=== PATIENT | female | born 1980 | race Caucasian/White ===

== ENCOUNTER 2025-01-31 17:17 | Emergency (ER) | payer OTHER, SELFPAY ==
[2025-01-31 17:21] VITALS: BP 147/87; PULSE 89; RESP 16; TEMP 36.8; O2SAT 100
--- NOTE | 2025-01-31 17:47 | ED_ITS ---
HPI - Recheck/Abnormal Lab/Rx General Chief Complaint: Recheck/Abnormal Lab/Rx <Bianka Lundberg JANETTE CurranN - Last Filed: 01/31/25 17:56> Stated Complaint: needle stick <Bianka Lundberg JANETTE CurranN - Last Filed: 01/31/25 17:56> Time Seen by Provider: 01/31/25 17:30 <Biankage Curran APRN - Last Filed: 01/31/25 17:56> Focused HPI: Patient is a 44-year-old female who presents to the ER after sustaining and needle stick to her right middle finger. She reports she is starting IV on an IV drug user. Patient reports her patient flung her arms and this patient felt the needle go through her glove. 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 Patient is requesting prophylactic treatment for everything. She reports she doused the area and put pressure on it to induce bleeding. Patient reports she is up-to-date on her vaccinations. She reports initially her right middle finger was throbbing, but the pain has subsided. Patient denies any other medical history relevant to this ER visit. GENERAL: Well-appearing, well-nourished, and in no acute distress. HEAD: Normocephalic, atraumatic. CHEST: Clear to auscultation. ?No respiratory distress. HEART: Regular rate and rhythm.? NEURO: ?Alert and oriented x3. Patient screened in triage and initial orders placed.? ?Additional care and disposition to be based upon?diagnostic testing and treatment. <Bianka TorresMarti Curran APRN - Last Filed: 01/31/25 17:56> Focused HPI: Patient is a 44-year-old female who presents to the ER after sustaining and needle stick to her right middle finger. She reports she is starting IV on an IV drug user. Patient reports her patient fl shellie her arms and this patient felt the needle go through her glove. 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 Patient is requesting prophylactic treatment for everything. She reports she doused the area and put pressure on it to induce bleeding. Patient reports she is up-to-date on her vaccinations. She reports initially her right middle finger was throbbing, but the pain has subsided. Patient denies any other medical history relevant to this ER visit. GENERAL: Well-appearing, well-nourished, and in no acute distress. HEAD: Normocephalic, atraumatic. CHEST: Clear to auscultation. ?No respiratory distress. HEART: Regular rate and rhythm.? NEURO: ?Alert and oriented x3. Patient screened in triage and initial orders placed.? ?Additional care and disposition to be based upon?diagnostic testing and treatment. <GIGI Zelaya Last Filed: 02/01/25 01:38> Source: patient <GIGI Zelaya Last Filed: 02/01/25 01:38> Mode of arrival: ambulatory <GIGI Zelaya Last Filed: 02/01/25 01:38> Limitations: no limitations <GIGI Zelaya Last Filed: 02/01/25 01:38> History of Present Illness HPI narrative: Agree with above HPI. Tetanus UTD <GIGI Zelaya Last Filed: 02/01/25 01:38> Related Data Allergies/Adverse Reactions: Allergies Allergy/AdvReac Type Severity Reaction Status Date / Time No Known Allergies Allergy Verified 01/31/25 17:23 <Bianka Curran APRN - Last Filed: 01/31/25 17:56> Review of Systems Review of Systems: All systems reviewed & are unremarkable except as noted in HPI. <GIGI Zelaya Last Filed: 02/01/25 01:38> All systems reviewed & are unremarkable except as noted in HPI and below <GIGI Zelaya Last Filed: 02/01/25 01:38> Exam Narrative: GENERAL: Well appearing, well-nourished, non-toxic, in no acute distress. HEAD: Normocephalic, atraumatic. RESPIRATORY: Airway patent, respirations nonlabored. CARDIOVASCULAR: Regular rate and rhythm MUSCULOSKELETAL: Moves all extremities. No gross deformities. SKIN: Warm, dry, normal color. No obvious puncture wounds to fingers. NEURO: A&O X3. Speech clear. PSYCHIATRIC: Appropriate mood and affect. Normal interaction. <Aliya Newsome PA-C - Last Filed: 02/01/25 01:38> Course Vital Signs Vital signs: Vital Signs Temperature 98.2 F 01/31/25 17:21 Pulse Rate 89 01/31/25 17:21 Respiratory Rate 16 01/31/25 17:21 Blood Pressure 147/87 H 01/31/25 17:21 Pulse Oximetry 100 01/31/25 17:21 Temperature 98.2 F 01/31/25 17:21 Pulse Rate 89 01/31/25 17:21 Respiratory Rate 16 01/31/25 17:21 Blood Pressure 147/87 H 01/31/25 17:21 Pulse Oximetry 100 01/31/25 17:21 <Bianka Curran APRN - Last Filed: 01/31/25 17:56> Vital Signs Temperature 98.2 F 01/31/25 17:21 Pulse Rate 89 01/31/25 17:21 Respiratory Rate 16 01/31/25 17:21 Blood Pressure 147/87 H 01/31/25 17:21 Pulse Oximetry 100 01/31/25 17:21 Temperature 98.2 F 01/31/25 17:21 Pulse Rate 89 01/31/25 17:21 Respiratory Rate 16 01/31/25 17:21 Blood Pressure 147/87 H 01/31/25 17:21 Pulse Oximetry 100 01/31/25 17:21 <Aliya Newsome PA-C - Last Filed: 02/01/25 01:38> MDM - Recheck/Abnormal Lab/Rx MDM Narrative Medical decision making narrative: Needlestick profile was obtained. Patient was able to obtain blood work from the other constitution party involved in the nee dle stick today. Advised close f/u with her hospital/nursing agency for results of this. Patient would like to receive HIV prophylaxis in case the patient's blood work does result positive. I discussed the side effects/risks related to these medications, the low transmission rate HIV from needle stick injury. Patient voiced understanding of risks. She would like to proceed with the HIV prophylaxis. She would like a prescription for this. She will follow-up with the blood work tomorrow and determine if she needs to start these medications. I did advise patient that if she chooses to begin the medications, she will need baseline labs. She does not wish to receive the blood work here today. She states she will follow-up with her PCP for this. Given return precautions. Discharged in stable condition. <Aliya Newsome PA-C - Last Filed: 02/01/25 01:38> Medical Records Attestation: I reviewed the patient's medical records. <Aliya Newsome PA-C - Last Filed: 02/01/25 01:38> Lab Data Attestation: I reviewed the patient's lab results. <Aliya Newsome PA-C - Last Filed: 02/01/25 01:38> Labs: Lab Results 01/31/25 Range/Units 17:30 Hep Bs Antibody Positive Hepatitis C Ab Screen Negative (Negative) HIV 1&2 Ab/P24 Ag 4thGn Negative (Negative) <Bianka Curran APRN - Last Filed: 01/31/25 17:56> Lab Results 01/31/25 Range/Units 17:30 Hep Bs Antibody Positive Hepatitis C Ab Screen Negative (Negative) HIV 1&2 Ab/P24 Ag 4thGn Negative (Negative) <Aliya Newsome PA-C - Last Filed: 02/01/25 01:38> Discharge Plan Discharge Clinical Impression: Needlestick injury accident <Bianka Curran APRN - Last Filed: 01/31/25 17:56> Patient Disposition: Home <Bianka Curran APRN - Last Filed: 01/31/25 17:56> Condition: Stable <Bianka Curran APRN - Last Filed: 01/31/25 17:56> Instructions: Antibiotic Form, Needle Stick Injuries (ED) <Bianka Curran APRN - Last Filed: 01/31/25 17:56> Additional Instructions: Follow up with your primary care doctor for continued testing. It is recommended you have repeat testing at 3 and 6 month intervals after the incident. Follow up with your agency and hospital for the patient's blood testing. You have been prescribed the post exposure prophylaxis for HIV. This as prescribed. Side effects to look out for include: Diarrhea, nausea, vomiting, headache, dizziness, insomnia, abnormal drainage, fatigue, weakness, kidney impairment, liver impairment, bone pain, difficulty breathing, etc. <Bianka Curran APRN - Last Filed: 01/31/25 17:56> Patient Language: Portuguese <Bianka Curran APRN - Last Filed: 01/31/25 17:56> Prescriptions: New emtricitabine-tenofovir (TDF) 200-300 mg tablet 1 tablet PO DAILY Qty: 28 0RF dolutegravir 50 mg tablet 50 mg PO DAILY 28 Days Qty: 28 0RF <Bianka Curran APRN - Last Filed: 01/31/25 17:56> Follow-up/Referrals: PHYSICIAN NOT ON STAFF,NONSTAFF [Primary Care Provider] - <Bianka Curran APRN - Last Filed: 01/31/25 17:56> Time of Disposition: 21:36 <Bianka Curran APRN - Last Filed: 01/31/25 17:56> 21:36 <Aliya Newsome PA-C - Last Filed: 02/01/25 01:38>
[2025-01-31 18:34] LABS: HIV 1/2 Ab P24 Ag Result Negative (Negative)
[2025-01-31 18:44] LABS: Hepatitis B Surface Anti Res Positive
--- OUTSIDE RECORDS SUMMARY | 2025-01-31 20:47 | XMS_ITS | Patient Health Record ---
Author Organization [facility] Address [address] [place] [address] Care Team Providers Care Foreign Service Officer Name Role Phone Raven LAGOS, [facility] Primary Care Provider Shavon Hawkins [phone] Allergies Allergen (clinical drug ingredient) Drug/Non Drug Allergy documented on EMR Reaction Allergy Type Onset Date Status morphine Morphine Unknown Drug Allergy Active Penicillin Unknown Drug Allergy Active Reason For Referral No Information Encounters Encounter Location Date Provider Diagnosis [facility] [address] [place] [address] 03/08/2024 Shavon Jauregui Plan Of Treatment No Information Insurance Providers Payer Name Payer Address Payer Phone Subscriber Number Group Number Insured Name Patient Relationship to Insured Coverage Start Date Coverage End Date BC[facility] OF [facility] [address] [place] [address] [id number] Sandy Mathur Self - patient is the insured Medical (General) History Medical History History ICD Code hypertension
--- OUTSIDE RECORDS SUMMARY | 2025-01-31 20:47 | XMS_ITS | Encounter Summary ---
Author Organization [facility] Address [address] [place] [address] Phone Care Team Providers Care Gate Tender Name Role Phone Evangelista Perdomo MD Primary Care Provider [phone] Nacho Hamilton MD Unavailable Rajan Carbajal MD Primary Care Provider [phone] Encounter Details Date Type Department Care Team (Late st Contact Info) Description 12/15/2021 Lab Requisition [facility] [address] [place] [address] Cele Malin, POCKET ASSEMBLER, FOREIGN LAW CONSULTANT [address] [place] [address] Encounter for pre-employment examination Social History Tobacco Use Types Packs/Day Years Used Date Smoking Tobacco: Former Cigarettes Q uit: 01/07/2021 Smokeless Tobacco: Never Alcohol Use Standard Drinks/Week Comments Yes 0 (1 standard drink = 0.6 oz pur e alcohol) Socially PHQ-2 Answer Date Recorded Total Score - Questions 1-9 0 02/20 Sexually Active Control Partners Comments Yes None Male Comments No Sex and Gender Information Value Date Recorded Sex Assigned at Female 07/12/2023 8:36 PM BRIDGE RIGGER Legal Sex Female 7:29 PM CDT Gender Identity Female 07/12/2023 8:36 PM BRIDGE RIGGER Sexual Orientation Straight 07/12/2023 8: 36 PM BRIDGE RIGGER COVID-19 Exposure Response Date Recorded In the last 10 days, have yo u been in contact with someone who was confirmed or suspected to have Coronavirus/COVID-19? No / Unsure 12/15/2021 12:03 PM CDT documented as of this encounter Plan of Treatment Not on file documented as of this encounter Procedures Procedure Name Priority Date/Time Associated Diagnosis Comments QUANTIFERON-TB GOLD PLUS Routine 12/15/2021 1:00 PM CDT Encounter for pre-employment examination MMRV PANEL Routine 12/15/2021 1:00 PM CDT Encounter for pre-employment examination MUMPS IGG Routine 12/15/2021 1:00 PM CDT Encounter for pre-employment examination HERPES ZOSTER (VARICELLA) IGG Routine 12/15/2021 1:00 PM CDT Encounter for pre-employment examination RUBEOLA (MEASLES) IGG Routine 12/15/2021 1:00 PM CDT Encounter for pre-employment examination RUBELLA IMMUNITY IGG Routine 12/15/2021 1:00 PM CDT Encounter for pre-employment examination HEPATITIS B SURFACE ANTIBODY (HBSAB) Routine 12/15/2021 1:00 PM CDT Encounter for pre-employment examination documented in this encounter Results * HERPES ZOSTER (VARICELLA) IGG (12/15/2021 1:00 PM CDT) VARICELLA ZOSTER IGG 1.4 >=1.1 AI 12/16/2021 11:22 AM CDT [facility] Blood No Phlebotomy Charged / Unknown 12/15/2021 1:00 PM CDT 12/15/2021 3:18 PM CDT Narrative [facility] - 12/16/2021 11:22 AM CDT <= 0.8 Negative. No detectable VZV IgG antibody. 0.9 - 1.0 Equivocal >=1.1 Positive Antibody testing was performed by multiplex flow immunoassay on the BioPlex platform. us Cele L [employer]rends POCKET ASSEMBLER, FOREIGN LAW CONSULTANT IMMUNOLOGY ORDERABL ES Final Result Performing Organization Address City/[facility]/ZIP Co de Phone Number [facility] [address] [place] [address], [place] * RUBEOLA (MEASLES) IGG (12/15/2021 1:00 PM CDT) MEASLES AB IGG 2.9 >=1.1 AI 12/16/2021 11:22 AM CDT [facility] Blood No Phlebotomy Charged / Unknown 12/15/2021 1:00 PM CDT 12/15/2021 3:18 PM CDT Narrative [facility] - 12/16/2021 11:22 AM CDT <= 0.8 Negative. No detectable Measles IgG antibody. 0.9 - 1.0 Equivocal >=1.1 Positive Antibody testing was performed by multiplex flow immunoassay on the BioPlex platform. Cele L [employer]rends POCKET ASSEMBLER, FOREIGN LAW CONSULTANT IMMUNOLOGY ORDERABL ES Final Result Performing Organization Address [facility]/ZIP Co de Phone Number [facility] [address] [place] [address], [place] * RUBELLA IMMUNITY IGG (12/15/2021 1:00 PM CDT) RUBELLA IMMUNITY Immune Immune, Invalid 12/16/2021 11:22 AM CDT [facility] Blood No Phlebotomy Charged / Unknown 12/15/2021 1:00 PM CDT 12/15/2021 3:18 PM CDT Narrative [facility] - 12/16/2021 11:22 AM CDT Antibody testing was performed by multiplex flow immunoassay on the BioPlex platform. us Cele L [employer] POCKET ASSEMBLER, FOREIGN LAW CONSULTANT CHEMISTRY ORDERABLE S Final Result [facility] [address] [place] [address], [place] * MUMPS IGG (12/15/2021 1:00 PM CDT) Mumps Ab IgG 1.7 >=1.1 AI 12/16/2021 11:22 AM CDT [facility] Blood No Phlebotomy Charged / Unknown 12/15/2021 1:00 PM CDT 12/15/2021 3:18 PM CDT Narrative [facility] - 12/16/2021 11:22 AM CDT <= 0.8 Negative. No detectable Mumps IgG antibody. 0.9 - 1.0 Equivocal >=1.1 Positive Antibody testing was performed by multiplex flow immunoassay on the [employer] platform. us Cele Malin POCKET ASSEMBLER, FOREIGN LAW CONSULTANT IMMUNOLOGY ORDERABL ES Final Result [facility] [address] [place] [address], * QUANTIFERON-TB GOLD PLUS (12/15/2021 1:00 PM CDT) NIL CONTROL 0.04 <8.01 IU/mL 12/17/2021 1:31 PM CDT [facility] TB ANTIGEN 1 0.00 <0.35 IU/mL 12/17/2021 1:31 PM CDT [facility] TB ANTIGEN 2 0.00 <0.35 IU/mL 12/17/2021 1:31 PM CDT [facility] MITOGEN CONTROL >10.00 >0.49 IU/mL 12/18/19 1:31 PM CDT [facility] INTEPRETATION TB NEGATIVE NEGATIVE, NEGATIVE (TB antigen response less than 25% of internal negative control value) 12/17/2021 1:31 PM CDT [facility] Comment:No immune response t o Mycobacterium tuberculosis antigens was noted. M. tuberculosis infection unlikely. Blood No Phlebotomy Charged / Unknown 12/15/2021 1:00 PM CDT 12/15/2021 3:18 PM CDT Narrative [facility] - 12/17/2021 1:31 PM CDT A POSITIVE QUANTIFERON-TB GOLD PLUS RESULT SHOULD NOT BE THE SOLE OR DEFINITIVE BASIS FOR DETERMINING INFECTION WITH M.TUBERCULOSIS. Diagnosing or excluding tuberculosis disease, and assessing the probability of LTBI, requires a combination of epidemiological, historical, medical and diagnostic findings (e.g., acid fast bacilli (AFB) smear and culture, chest xray) that should be taken into account when interpreting QFT-Plus results. Furthermore, the magnitude of the measured gamma interferon level cannot be correlated to stage or degree of infection, level of immune responsiveness, or likelihood for progression to active disease. The Nil control adjusts for background (e.g., elevated levels of circulating gamma interferon or presence of heterophile antibodies). The Mitogen control serves as an internal positive control and verifies each specimen tested can produce a gamma interferon response. Low mitogen may occur with insufficient lymphocytes, reduced lymphocyte activity due to improper specimen handling, filling/mixing of the mitogen tube, or inability of the patient's lymphocytes to generate gamma interferon. Infection with other Mycobacteria, including M. kansasii, M. szulgai, and M. marinum, may cause false positive results. A negative QuantiFERON-TB Gold Plus result does not preclude the possibility of M. tuberculosis infection or tuberculosis disease: false negative results can be due to incorrect blood sample collection/ improper handling of the specimen, stage of infection (e.g., specimen obtained prior to the development of cellular immune response), co-morbid conditions which affect immune function, or other individual immunological factors. The minimum number of lymphocytes required for a reliable test has not been established and may also be variable. Diagnostic testing for Mycobacterium tuberculosis using Interferon Gamma Release Assays should follow applicable published guidelines, including when testing in populations such as children, women, and HIV-infected or otherwise immunocompromised individuals. https://www.cdc.gov/tb/publications/guidelines/testing.htm us Cele Malin APRN, BRIAN IMMUNOLOGY ORDERABL ES Final Result [facility] [address] [place] [address], * HEPATITIS B SURFACE ANTIBODY (HBSAB) (12/15/2021 1:00 PM CDT) HEPATITIS B SURFACE ANTIBODY 86.93 mIU/mL [facility] ARCH [id number] 12/15/2021 10:27 PM CDT [facility] Comment: Detected Range: >12.00 Individual is considered immune to HBV infection Blood No Phlebotomy Charged / Unknown 12/15/2021 1:00 PM CDT 12/15/2021 3:18 PM CDT us Cele L [employer]rends POCKET ASSEMBLER, FOREIGN LAW CONSULTANT CHEMISTRY ORDERABLE S Final Result [facility] [address] [place] [address], documented in this encounter Visit Diagnoses Diagnosis Encounter for pre-employment examination Health examination of defined subpopulation documented in this encounter Additional Health Concerns Assessment Noted Time PHQ-9 Depression Total Score: 0 03/12/20 21 8:00 AM CDT documented as of this encounter Care Teams Gate Tender Relationship Specialty Start Date End Date Evangelista Perdomo MD #[address] [facility] [address] [place] [address] PCP - General Family Medicine 03/31/21 08/17/23 Rajan Carbajal MD #2 [facility] [address] [place] [address] PCP - General Family Medicine 08/18/23 Nacho Hamilton MD #2 [facility] [address] [place] [address] Consulting Physician Urology 07/16/22 documented as of this encounter
--- OUTSIDE RECORDS SUMMARY | 2025-01-31 20:47 | XMS_ITS | Clinical Summary ---
Author Organization [facility] Address [address] [address] Phone Care Team Providers Care Tape Recorder Mechanic Name Role Phone Nacho Hamilton MD Unavailable Rajan Carbajal MD Primary Care Provider [phone] Allergies Active Allergy Reactions Criticality Noted Date Comments Morphine Other (see Comments) 05/18/2018 Cardiac arrest Penicillin G Unknown 07/10/2022 Medications amLODIPine (NORVASC) 2.5 MG Tablet Take 1 Tablet by mouth daily. 30 Tablet 3 4 Active Additional Information Patient not taking.Reported on 10/04/2024 Atovaquone-Prog uanil HCl 250-100 MG Tablet Take 1 tablet by mouth daily. Start 2 days before trip and continue until 7 days after trip. 18 Tablet 4 Active solifenacin (VESICARE) 5 MG Tablet Take 1 Tablet by mouth daily. 30 Tablet 5 4 Active Additional Information Patient not taking.Reported on 10/04/2024 Doxycycline Hyclate 20 MG Tablet Take 20 mg by mouth 2 times daily. Active Omeprazole Magnesium (PriLOSEC OTC) 20 MG Tablet Delayed Response Take 20 mg by mouth 2 times daily. Active Active Problems Problem Noted Date Diagnosed Date Rash 03/01/2024 SOB (shortness of breath) 03/01/2024 Renal scarring 08/18/2023 Hair loss 08/18/2023 Facial rash 08/18/2023 Hiatal hernia 03/12/2021 Mild intermittent asthma without complication Encounters Date Type Department Care Team Description 01/18/2025 Lab [facility]quisition [facility] [address] [facility] [place] [id number] Cele Malin APRN, TELECOMMUNICATIONS LINE MECHANIC 01/18/2025 Travel 01/03/2025 Documentation Only [facility] - Family [facility] [address] [place] [id number] Rajan Carbajal MD from Last 3 Months Immunizations Immunization Administration Dates Next Due DTP Vaccine 02/22/1985, 1,03/21/1980,1979,1979 Hepatitis B Vaccine 05/15/2008,01/04/2008,2007 Influenza Vaccine greater than 3 yrs 03/21/2023 Influenza Vaccine less than 3 yrs 03/05/2021 Influenza Vaccine, Quadrivalent, PF 03/05/2022,1 07/10/2017 Influenza, Seasonal, Injecta ble, Undefined 03/21/2023,03/03/2021 Influenza,Split Virus,Trivalent,Injectable,PF 03/21/2024 MMR Vaccine 04/08/2022, 2,01/24/1990,1980 OPV 02/22/1985, 1,03/21/1980,1979,1979 TB Skin Test 11/18/2021 TDAP Vaccine 05/10/2018,10/04/2007 Td, Unspecified Formulation 01/27/1994 Varicella Vaccine Live 01/04/2008,10/04/2007 Yellow Fever Vaccine 08/23/2023 Family History Medical History Relation Name Comments Diabetes Brother Hypertension Brother No Known Problems Daughter Diabetes Father Hypertension Father Stroke Father Cancer Maternal Grandfather Congestive Heart Failure Maternal Grandfather Diabetes Maternal Grandfather Hypertension Maternal Grandfather Congestive Heart Failure Maternal Grandmother Thyroid Disease Maternal Grandmother Diabetes Mother Hypertension Mother Seizures Paternal Grandfather Diabetes Paternal Grandmother High Cholesterol Paternal Grandmother Hypertension Paternal Grandmother Thyroid Disease Paternal Grandmother No Known Problems Son 1 No Known Problems Son 2 Relation Name Status Comments Brother Alive Daughter Alive Father Alive Maternal Grandfather Maternal Grandmother Alive Mother Alive Paternal Grandfather Paternal Grandmother Son 1 Alive Son 2 Alive Social History Tobacco Use Types Packs/Day Years Used Date Smoking Tobacco: Former Cigarettes Q uit: 01/07/2021 Smokeless Tobacco: Never Tobacco Cessation:Counseling Given: Yes Alcohol Use Standard Drinks/Week Comments Yes 0 (1 standard drink = 0.6 oz pur e alcohol) Socially [employer] Utilities Answer Date Recorded In the past 12 months has e Faves, gas, oil, or water [employer] threatened to shut off services in your home? No 08/18/2023 Social Connection and Isolation Panel Answer Date Recorded In a typical week, how many times do you talk on the phone with family, friends, or neighbors? More than three times a week 08/18/2023 How often do you get togethe r with friends or relatives? Twice a week 08/18/2023 How often do you attend [facility] or confucianist services? More than 4 times per year 08/18/2023 Do you belong to any clubs o r organizations such as jehovah's witness groups, unions, fraternal or athletic groups, or school groups? Yes 08/18/2023 How often do you attend meet ings of the clubs or organizations you belong to? More than 4 times per year 08/18/2023 Are you , , di vorced, , never , or living with a partner? Living with partner 08/18/2023 AUDIT-C Answer Date Recorded Q1: How often do you have a drink containing alc ohol? 2-4 times a month 08/18/2023 Q2: How many drinks containi ng alcohol do you have on a typical day when you are drinking? 1 or 2 08/18/2023 Q3: How often do you have si x or more drinks on one occasion? Never 08/18/2023 Overall Financial Resource Strain (CARDIA) Answe r Date Recorded How hard is it for you to pa y for the very basics like food, housing, medical care, and heating? Not hard at all 08/18/2023 PHQ-2 Answer Date Recorded Total Score - Questions 1-9 0 02/20 [facility] - Occupational Stress Questionnaire Answer Date Recorded Do you feel stress - tense, restless, nervous, or anxious, or unable to sleep at night because your mind is troubled all the time - these days? Only a little 08/18/2023 Exercise Vital Sign Answer Date Recorde d On average, how many days pe r week do you engage in moderate to strenuous exercise (like a brisk walk)? 3 days 08/18/2023 On average, how many minutes do you engage in exercise at this level? 120 min 08/18/2023 Hunger Vital Sign Answer Date Recorded Within the past 12 months, y ou worried that your food would run out before you got the money to buy more. Never true 08/18/19 24 Within the past 12 months, t he food you bought just didn't last and you didn't have money to get more. Never true 08/18/2023 PRAPARE - Transportation Answer Date Re corded In the past 12 months, has l ack of transportation kept you from medical appointments or from getting medications? No 07/23 In the past 12 months, has l ack of transportation kept you from meetings, work, or from getting things needed for daily living? No 08/18/2023 Housing Stability Vital Sign Answer Mathieu e Recorded In the last 12 months, was t here a time when you were not able to pay the mortgage or rent on time? No 08/18/2023 In the last 12 months, how many places have you lived? 2 08/18/2023 In the last 12 months, was t here a time when you did not have a steady place to sleep or slept in a nursing home (including now)? No 08/18/2023 Education Answer Date Recorded What is the highest level of school you have completed or the highest degree you have received? Bachelor's degree (e.g., BA, AB, BS) 02/09/2023 Sexually Active Control Partners Comments Yes None Male Comments No Sex and Gender Information Value Date Recorded Sex Assigned at Female 07/12/2023 8:36 PM CEMENT MIXER Legal Sex Female 7:29 PM CDT Gender Identity Female 07/12/2023 8:36 PM CEMENT MIXER Sexual Orientation Straight 07/12/2023 8: 36 PM CEMENT MIXER Last Filed Vital Signs Vital Sign Reading Time Taken Comments Blood Pressure 118/80 01/13/2024 8:47 AM CDT Pulse 77 01/13/2024 8:47 AM CDT Temperature 36 C (96.8 F) 08/18/2023 3:21 PM CEMENT MIXER Respiratory Rate 18 01/13/2024 8:47 AM CDT Oxygen Saturation 99% 01/13/2024 8:47 AM CDT Inhaled Oxygen Concentration - - Weight 63.5 kg (140 lb) 01/13/2024 8:47 AM CDT Height 170.2 cm (5' 7) 01/13/2024 8:47 AM CDT Body Mass Index 21.93 01/13/2024 8:47 AM CDT Plan of Treatment Health Maintenance Due Date Last Done Comments Pneumococcal Immunization Combined (1 of 2 - PCV) 10/06/1998 Human Papillomavirus (HPV) Immunization (1 - 3-dose SCDM series) 10/06/2006 HPV/Cotest 10/06/2009 SARS-COV-2 Immunization ( season) 2024 11/19/2021, 03/17/2021, 07/05/2020, Additional history exists Cologuard 10/06/2024 Colonoscopy 10/06/2024 Colorectal Cancer Screening 10/06/2024 Immunochemical Fecal Occult Blood 10/06/2024 Influenza Immunization (#1) 02/19/202506/2023, 03/21/2023, 03/21/2023, Additional history exists Mammogram 10/11/2025 10/11/2024, 09/20, 12/30/2022, Additional history exists Cervical Cancer Screening (CCS) 09/01/2027 Pap Smear 09/01/2027 08/31/2024 DTaP/Tdap/Td Immunization (8 - Td or Tdap) 05/10/2028 05/10/2018, 10/04/2007, 01/27/1994, Additional history exists Respiratory Syncytial Virus (RSV) Immunization (Adult) (1 - 1-dose 75+ series) 10/06/2054 Hepatitis B Immunization Completed 008, 01/04/2008, 10/04/2007 Hepatitis C Virus (HCV) Screening Completed 03/16/2021 Discussion re Starting/Frequency of Mammograms Completed 10/11/2024, 10/11/2024, 12/30/2022, Additional history exists Meningococcal Immunization (ACWY) Aged Out No longer eligible based on patient's age to complete this topic Rotavirus Immunization Aged Out No lo nger eligible based on patient's age to complete this topic Procedures Procedure Name Priority Date/Time Associated Diagnosis Comments QUANTIFERON-TB GOLD PLUS Routine 01/18/2025 8:15 AM CDT MAMMOGRAM BILATERAL GENERIC 10/11/2024 12:00 AM CDT PATHOLOGY CYTOLOGY LIQUID FERTILIZER SERVICER 08/31/2024 12:00 AM CDT HEPATITIS PANEL ACUTE (AHP) 03/16/2021 12:00 AM CDT from Last 3 Months or Most Recently Relevant to Health Maintenance Results * QUANTIFERON-TB GOLD PLUS (01/18/2025 8:15 AM CDT) NIL CONTROL 0.01 <8.01 IU/mL 01/21/2025 9:38 AM CDT [facility] TB ANTIGEN 1 0.00 <0.35 IU/mL 01/21/2025 9:38 AM CDT [facility] TB ANTIGEN 2 0.01 <0.35 IU/mL 01/21/2025 9:38 AM CDT [facility] MITOGEN CONTROL 9.99 >0.49 IU/mL 01/22/20 9:38 AM CDT [facility] INTEPRETATION TB NEGATIVE NEGATIVE, NEGATIVE (TB antigen response less than 25% of internal negative control value) 01/21/2025 9:38 AM CDT [facility] Comment:No immune response t o Mycobacterium tuberculosis antigens was noted. M. tuberculosis infection unlikely. Blood Venipuncture / Unknown 01/18/2025 8:15 AM CDT 01/18/2025 8:55 AM CDT Narrative [facility] - 01/21/2025 9:38 AM CDT A POSITIVE QUANTIFERON-TB GOLD PLUS RESULT [...] and HIV-infected or otherwise immunocompromised individuals. https://www.cdc.gov/tb/publications/guidelines/testing.htm Cele Malin APPLICATIONS SALES REPRESENTATIVE, TELECOMMUNICATIONS LINE MECHANIC IMMUNOLOGY ORDERABL ES Final Result Performing Organization Address City/[facility]/ZIP Co de Phone Number [facility] [address] [place] [address], [place] * MAMMOGRAM BILATERAL GENERIC (10/11/2024 12:00 AM CDT) 10/11/2024 us Provider Scan IMG MAMMO ORDERABLES Final Resul t SCAN * PATHOLOGY CYTOLOGY LIQUID FERTILIZER SERVICER (08/31/2024 12:00 AM CDT) 08/31/2024 us Provider Scan PATHOLOGY/CYTOLOGY ORDERABLES Fi nal Result SCAN * HEPATITIS PANEL ACUTE (AHP) (03/16/2021 12:00 AM CDT) 03/16/2021 us Not On File Provider HEMATOLOGY ORDERABLES Final Result SCAN from Last 3 Months or Most Recently Relevant to Health Maintenance Insurance * Guarantor: [facility] Account Type Relation to Patient Date of Phone Billing Address Institutional Other [address] [place] [address] Care Teams Tape Recorder Mechanic Relationship Specialty Start Date End Date Rajan Carbajal MD [address] [facility] [address] [place] [address] PCP - General Family Medicine 08/18/23 Nacho Hamilton MD [address] [facility] [address] [place] [address] Consulting Physician Urology 07/16/22
--- OUTSIDE RECORDS SUMMARY | 2025-01-31 20:47 | XMS_ITS | Encounter Summary ---
Author Organization [facility] Address [address] [place] [address] Phone Care Team Providers Care Vehicle Dynamics Engineer Name Role Phone Nacho Hamilton MD Unavailable Rajan Carbajal MD Primary Care Provider + [phone] Encounter Details Date Type Department Care Team (Late st Contact Info) Description 01/18/2025 Lab Requisition [facility] Laboratory Services [address] [place] [address] Cele Malin, STEEL PAN FORM PLACING SUPERVISOR, ACUTE CARE REGISTERED NURSE [address] [place] [address] Social History Tobacco Use Types Packs/Day Years Used Date Smoking Tobacco: Former Cigarettes Q uit: 01/07/2021 Smokeless Tobacco: Never Alcohol Use Standard Drinks/Week Comments Yes 0 (1 standard drink = 0.6 oz pur e alcohol) Socially [facility] Utilities Answer Date Recorded In the past 12 months has [employer] electric, gas, oil, or water company threatened to shut off services in your home? No 08/18/2023 Social Connection and Isolation Panel Answer Date Recorded In a typical week, how many times do you talk on the phone with family, friends, or neighbors? More than three times a week 08/18/2023 How often do you get togethe r with friends or relatives? Twice a week 08/18/2023 How often do you attend [facility] or temple services? More than 4 times per year 08/18/2023 Do you belong to any clubs o r organizations such as confucianist groups, unions, fraternal or athletic groups, or [...] Total Score - Questions 1-9 0 02/20 [facility] - Occupational [...] place to sleep or slept in a half-way (including now)? No 08/18/2023 Education Answer Date Recorded What is the highest level of school you have completed or the highest degree you have received? Bachelor's degree (e.g., BA, AB, BS) 02/09/2023 Sexually Active Control Partners Comments Yes None Male Comments No Sex and Gender Information Value Date Recorded Sex Assigned at Female 07/12/2023 8:36 PM MARKETING STRATEGIST Legal Sex Female 7:29 PM CDT Gender Identity Female 07/12/2023 8:36 PM MARKETING STRATEGIST Sexual Orientation Straight 07/12/2023 8: 36 PM MARKETING STRATEGIST documented as of this encounter Plan of Treatment Not on file documented as of this encounter Procedures Procedure Name Priority Date/Time Associated Diagnosis Comments QUANTIFERON-TB GOLD PLUS Routine 01/18/2025 8:15 AM CDT documented in this encounter Results * QUANTIFERON-TB GOLD PLUS (01/18/2025 8:15 AM CDT) NIL CONTROL 0.01 <8.01 IU/mL 01/21/2025 9:38 AM CDT [facility] TB ANTIGEN 1 0.00 <0.35 IU/mL 01/21/2025 9:38 AM CDT [facility] TB ANTIGEN 2 0.01 <0.35 IU/mL 01/21/2025 9:38 AM CDT [facility] MITOGEN CONTROL 9.99 >0.49 IU/mL 01/22/20 9:38 AM CDT [facility] INTEPRETATION TB NEGATIVE NEGATIVE, NEGATIVE (TB antigen response less than 25% of internal negative control value) 01/21/2025 9:38 AM CDT [facility] Comment:No immune response t o Mycobacterium tuberculosis antigens was noted. M. tuberculosis infection unlikely. Blood Venipuncture / Unknown 01/18/2025 8:15 AM CDT 01/18/2025 8:55 AM CDT Narrative [facility] - 01/21/2025 9:38 AM CDT A [...] or otherwise immunocompromised individuals. https://www.cdc.gov/tb/publications/guidelines/testing.htm Cele Malin STEEL PAN FORM PLACING SUPERVISOR, ACUTE CARE REGISTERED NURSE IMMUNOLOGY ORDERABL ES Final Result [facility] [address] [place] [address], documented in this encounter Visit Diagnoses Not on filedocumented in this encounter Additional Health Concerns Assessment Noted Time PHQ-9 Depression Total Score: 0 03/12/20 21 8:00 AM CDT documented as of this encounter Care Teams Vehicle Dynamics Engineer Relationship Specialty Start Date End Date Rajan Carbajal MD [address] [facility] [address] [place] [address] PCP - General Family Medicine 08/18/23 Nacho Hamilton MD [address] [facility] [address] [place] [address] Consulting Physician Urology 07/16/22 documented as of this encounter
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
--- OUTSIDE RECORDS SUMMARY | 2025-01-31 20:47 | XMS_ITS ---
Author Organization [facility] Address [address] [facility] [address] [address] Care Team Providers Care Foreign Exchange Dealer Name Role Phone Raven LAGOS, Rajan Primary Care Provider Shavon Hawkins [phone] Allergies Allergen (clinical drug ingredient) Drug/Non Drug Allergy documented on EMR Reaction Allergy Type Onset Date Status morphine Morphine Unknown Drug Allergy Active Penicillin Unknown Drug Allergy Active REASON FOR VISIT facial rash Encounters Encounter Location Date Provider Diagnosis [facility] [address] [facility] [address] [place] [address] 04/04/2024 Shavon Villatoro Plan Of Treatment No Information Progress Notes * Swetha ARVIZUOB: 0 (44 yo F)Acc No.[id number]:04/04/2024 Progress Notes Patient: Sandy RIVERO Appointment Provider: Holland VILLATORO MD :1980 A ge:43 Y S ex:Female Date:04/04/2024 Address:[address] [place] [address] Pcp:Rajan Carbajal MD Subjective: * Chief Complaints: * 1 . Facial rash. * Medical History: H ypertension. * Allergies: M orphine, Penicillin. Objective: * Vitals: Assessment: Plan: * Treatment: * Billing Information: * Visit Code: * Procedure Codes: * Electronic signature of Shavon Villatoro MD on 01/31/2025 at 08:47 PM CDT Sign off status: Pending * Appointment Provider: Hloland VILLATORO MD Date: 1 Generated for Printi ng/Faxing/eTransmitting on: 0 01/31/2025 08:47 PM CDT
--- NOTE | 2025-01-31 21:31 | PC.NURSE ---
20:30 Patient is frustrated with the wait. RN has spoken with provider 2x about patient concern. Patient states she wants to leave but also wants to receive prophylaxis. RN reminded patient about looking up results online and that she spoke with the provider about her concerns. Patient stated she could not look up results at this time with her phone. 21:00 Patient is yelling at staff and registration about wait times and cussing about how long she has waited in the ED. RN spoke with provider about patient possibly wanting to leave AMA. 21:15 Provider has spoken with patient.
--- NOTE | 2025-01-31 21:50 | PC.NURSE ---
Provider and RN went into room with discharge paperwork. Patient educated on getting lab work-ups with primary care and educated on medication. Patient did not have any questions and stated she would see her primary care provider.
== END 2025-01-31 21:55 | disposition home or self-care (01) ==
PROVIDERS: Registered Nurse; Emergency Provider Physician Assistant
DX: S61.232A Puncture wound without foreign body of right middle finger without damage to nail, initial encounter (principal); W46.1XXA Contact with contaminated hypodermic needle, initial encounter
CPT/HCPCS: 36415; 86703; 86706; 86803; 99283; G0432